=== PATIENT | male | born 1940 | race Caucasian/White ===

== ENCOUNTER 2019-02-03 12:49 | Emergency (ER) | payer OTHER ==
[~2019-02-03] VITALS: Ht 172.7 cm; Wt 77.1 kg
[2019-02-03] MEDS ORDERED: KEPPRA (13:09)
[2019-02-03] MEDS ORDERED: [UNRECOGNIZED DRUG - OTHER] (13:10)
== END 2019-02-03 17:28 | disposition home or self-care (01) ==
LOC: ER 12:49
DX: S50.11XA Contusion of right forearm, initial encounter (principal); S70.01XA Contusion of right hip, initial encounter; W18.09XA Striking against other object with subsequent fall, initial encounter; Y93.89 Activity, other specified; Y92.038 Other place in apartment as the place of occurrence of the external cause; Y99.8 Other external cause status